=== PATIENT | male | born 1955 | race Caucasian/White ===

== ENCOUNTER 2020-01-24 19:10 | Emergency (ER) | payer OTHER ==
[~2020-01-24] VITALS: Ht 177.8 cm; Wt 84.5 kg
[2020-01-24 21:19] LABS: BASO % 1 % (0-3); EOS # 0.1 x10^3/uL (0.0-0.7); EOS % 1 % (0-3); HEMATOCRIT 43.6 % (39.0-53.0); HEMOGLOBIN 15.4 g/dL (13.0-17.5); LYMPH # 2.5 x10^3/uL (1.0-4.8); LYMPH % 32 % (24-48); MEAN CORPUSCULAR HEMOGLOBIN 30 pg (25-35); MEAN CORPUSCULAR HGB CONC 35 g/dL (31-37); MEAN CORPUSCULAR VOLUME 85 fL (79-100); MONO # 0.7 x10^3/uL (0.0-1.1); MONO % 9 % (0-9); NEUT # 4.5 x10^3/uL (1.8-7.7); NEUT % 57 % (31-73); PLATELET COUNT 213 x10^3/uL (140-400); RED BLOOD COUNT 5.15 x10^6/uL (4.30-5.70); RED CELL DISTRIBUTION WIDTH 13.5 % (11.5-14.5); WHITE BLOOD COUNT 7.8 x10^3/uL (4.0-11.0)
[2020-01-24 21:20] LABS: BILIRUBIN,URINE NEGATIVE (NEG); CLARITY,URINE CLEAR; COLOR,URINE YELLOW; NITRITE,URINE NEGATIVE (NEG); PH,URINE 5.5 (<5.0-8.0); PROTEIN,URINE NEGATIVE (NEG-TRACE); UROBILINOGEN,URINE 0.2 mg/dL (0.2 mg/dL)
[2020-01-24 21:28] LABS: BACTERIA,URINE 0 /HPF (0-FEW); RBC,URINE 0 /HPF (0-2); WBC,URINE 0 /HPF (0-4)
[2020-01-24 21:32] LABS: CALCIUM 8.9 mg/dL (8.5-10.1); GFR 75.5; POTASSIUM 4.1 mmol/L (3.5-5.1)
[2020-01-24 21:38] LABS: ALBUMIN/GLOBULIN RATIO 1.5 (1.0-1.7); MAGNESIUM 2.2 mg/dL (1.8-2.4); TOTAL BILIRUBIN 0.7 mg/dL (0.2-1.0); TOTAL PROTEIN 6.7 g/dL (6.4-8.2)
--- NOTE | 2020-01-24 21:42 | PHYS DOC ---
Past Medical History Past Medical History: GERD, Hypertension Past Surgical History: Cholecystectomy Smoking Status: Former Smoker Alcohol Use: Occasionally Drug Use: None General Adult EDM: Chief Complaint: ABDOMINAL PAIN HPI: HPI: Patient is a 64 year old male who presents with abdominal pain that started getting worse on Monday. The pain is diffuse and radiates to his back and is rated 10/10. Pt notes associated nausea. The pt admits loss of appetite and the pain gets worse with eating. Pt states that gas-x, Tylenol, and aleve did not help. Pt does admit a headache that is worse than normal. Pt also states that he is due for an esophageal dilation soon and takes omeprazole for GERD symptoms daily. Last bowel movement was today. Denies known sick contact. Denies known exposure to COVID-19. Reports recently tested negative for COVID-19. Review of Systems: Review of Systems: Constitutional: Denies fever or chills Eyes: Denies redness or eye pain HENT: Denies nasal congestion or sore throat Respiratory: Denies cough, endorses chronic shortness of breath Cardiovascular: Denies chest pain or palpitations GI: Denies vomiting, endorses abdominal pain and nausea : Denies dysuria or hematuria Musculoskeletal: Denies joint pain or back pain Integument: Denies rash or skin lesions Neurologic: Denies focal weakness or sensory changes, endorses headache Complete systems were reviewed and found to be within normal limits, except as documented in this note. Current Medications: Current Medications Medications (Trade) Dose Ordered Sig/[facility] Start Time Stop Time Status Last Admin Dose Admin Ondansetron HCl (Zofran) 4 mg 1X ONCE 01/24/20 22:00 01/24/20 22:01 Sodium Chloride 1,000 ml @ 1,000 mls/hr 1X ONCE 01/24/20 22:00 01/24/20 22:59 Allergies: Allergies: Allergies Coded Allergies Type Severity Reaction Last Updated Verified propoxyphene Allergy Severe 01/24/20 Yes doxycycline Allergy Intermediate 01/24/20 Yes Physical Exam: PE: Constitutional: Well developed, well nourished, no acute distress, non-toxic appearance HENT: Normocephalic, atraumatic Neck: Normal range of motion, no tenderness, supple Lungs & Thorax: No respiratory distress, equal chest rise and fall Abdomen: Distended, diffuse tenderness, BSx4, tympanic to percussion, negative mcburney's point tenderness, rebound tenderness in LLQ and RLQ Skin: Warm, dry, no erythema, no rash Back: No tenderness, no CVA tenderness Extremities: No tenderness, ROM intact, no edema Neurologic: Alert and oriented X 3, normal motor function, normal sensory function, no focal deficits noted Psychologic: Affect normal, judgment normal Current Patient Data: Labs: Laboratory Tests Test 01/24/20 19:30 01/24/20 20:55 Urine Collection Type Unknown Urine Color Yellow Urine Clarity Clear Urine pH 5.5 (<5.0-8.0) Urine Specific [place] <=1.005 (1.000-1.030) Urine Protein Negative mg/dL (NEG-TRACE) Urine Glucose (UA) Negative mg/dL (NEG) Urine Ketones (Stick) Negative mg/dL (NEG) Urine Blood Negative (NEG) Urine Nitrite Negative (NEG) Urine Bilirubin Negative (NEG) Urine Urobilinogen Dipstick 0.2 mg/dL (0.2 mg/dL) Urine Leukocyte Esterase Negative (NEG) Urine RBC 0 /HPF (0-2) Urine WBC 0 /HPF (0-4) Urine Squamous Epithelial Cells Occ /LPF Urine Bacteria 0 /HPF (0-FEW) White Blood Count 7.8 x10^3/uL (4.0-11.0) Red Blood Count 5.15 x10^6/uL (4.30-5.70) Hemoglobin 15.4 g/dL (13.0-17.5) Hematocrit 43.6 % (39.0-53.0) Mean Corpuscular Volume 85 fL (79-100) Mean Corpuscular Hemoglobin 30 pg (25-35) Mean Corpuscular Hemoglobin Concent 35 g/dL (31-37) Red Cell Distribution Width 13.5 % (11.5-14.5) Platelet Count 213 x10^3/uL (140-400) Neutrophils (%) (Auto) 57 % (31-73) Lymphocytes (%) (Auto) 32 % (24-48) Monocytes (%) (Auto) 9 % (0-9) Eosinophils (%) (Auto) 1 % (0-3) Basophils (%) (Auto) 1 % (0-3) Neutrophils # (Auto) 4.5 x10^3/uL (1.8-7.7) Lymphocytes # (Auto) 2.5 x10^3/uL (1.0-4.8) Monocytes # (Auto) 0.7 x10^3/uL (0.0-1.1) Eosinophils # (Auto) 0.1 x10^3/uL (0.0-0.7) Basophils # (Auto) 0.0 x10^3/uL (0.0-0.2) Laboratory Tests 01/24/20 20:55 EKG: EKG: [] Radiology/Procedures: Radiology/Procedures: PROCEDURE: CT ABD PELV W/ORAL&IV CONTRAST Exam: CT of abdomen and pelvis with contrast INDICATION: Abdominal pain TECHNIQUE: Sequential axial images through the abdomen and pelvis obtained following the administration of 75 mL of Omni 300 IV contrast. Sagittal and coronal reformatted images were reconstructed from the axial data and reviewed. Comparisons: None FINDINGS: Heart size is normal. No pericardial effusion. Visualized lung bases are clear. No pleural effusion. Liver, spleen, pancreas, and adrenals are unremarkable. Gallbladder surgically absent. No perinephric inflammation or hydronephrosis. No renal or ureteral calculi are identified. Bladder is distended and appears thin-walled. Prostate is not enlarged. Large and small bowel are unremarkable. Appendix is normal. No free intra-abdominal air or fluid. No obstruction. Abdominal aorta has a normal course and caliber. Abdominal vasculature is patent. No enlarged abdominal lymph nodes are identified. No suspicious osseous lesions or acute fractures. IMPRESSION: No acute process identified within the abdomen or pelvis. Exposure: One or more of the following in the visualized dose reduction techniques were utilized for this examination: 1. Automated exposure control 2. Adjustment of the MA and/or KV according to patient size 3. Use of iterative of reconstructive technique Electronically signed by: Risa Sagastume MD (01/24/2020 11:09 PM) [facility] Med Decision Making: Course & Med Decision Making Pertinent Labs and Imaging studies reviewed. (See chart for details) 64 yo male pt presents with abdominal pain that has been getting worse since Monday. The pain is diffuse and radiates to his back. Last bowel movement was today. Denies any diarrhea or constipation. Labs obtained and posted to chart. CT demonstrated no acute abdominal processes. Symptomatic treatment provided. Patient stable for discharge with outpatient follow-up with PCP. Discussed findings and plan with patient and family, who acknowledge understanding and agreement. Brennan Disclaimer: Brennan Disclaimer: This electronic medical record was generated, in whole or in part, using a voice recognition dictation system. Departure Departure Impression: Primary Impression: Abdominal pain Qualified Codes: R10.84 - Generalized abdominal pain Disposition: 01 DC HOME SELF CARE/HOMELESS Condition: STABLE Referrals: MACK FREIRE MD Patient Instructions: Abdominal Pain, Wkow-oq-Iscg Scripts Hydrocodone/Apap 5-325 (NORCO 5-325 TABLET) 1 Each Tablet 0.5-1 TAB PO Q6HRS PRN for PAIN, #10 TAB Prov: TONYA MENDEZ DO 01/24/20 Sennosides/Docusate Sodium (Colace 2-in-1 Tablet) 1 Each Tablet 1 TAB PO QHS, #30 TAB 0 Refills Prov: TONYA MENDEZ DO 01/24/20 Hyoscyamine Sulfate (LEVSIN-SL) 0.125 Mg Tab.subl 0.125 MG SL Q4-6HRS PRN for PAIN, #14 TAB Prov: TONYA MENDEZ DO 01/24/20 Ondansetron (ONDANSETRON ODT) 4 Mg Tab.rapdis 1 TAB PO PRN Q6-8HRS PRN for NAUSEA, #16 TAB Prov: TONYA MENDEZ DO 01/24/20 TONYA MENDEZ DO Jan 24, 2020 21:41
[2020-01-24] MEDS ORDERED: CONTRAST GIVEN. MC PRN (21:45)
[2020-01-24] MEDS ORDERED: ONDANSETRON PF 4 MG/2 ML VIAL. IVP ONE (22:00)
[2020-01-24] MEDS ORDERED: IV NORMAL SALINE 1000ML BAG 1,000 ML IV ONE (22:00)
[2020-01-24] MEDS ORDERED: fentaNYL PF VIAL 100 MCG/2 ML VIAL IV ONE (22:00)
[2020-01-24] MEDS ORDERED: IOHEXOL 240 MG/ML 50ML VIAL. PO ONE (22:00)
[2020-01-24] MEDS ORDERED: IOHEXOL 300 MG/ML 100ML VIAL. IV ONE (22:30)
[2020-01-24] MEDS ORDERED: KETOROLAC 15 MG/ML VIAL. IVP ONE (23:00)
--- NOTE | 2020-01-24 23:11 | RAD ---
Exam: CT of abdomen and pelvis with contrast INDICATION: Abdominal pain TECHNIQUE: Sequential axial images through the abdomen and pelvis obtained following the administration of 75 mL of Omni 300 IV contrast. Sagittal and coronal reformatted images were reconstructed from the axial data and reviewed. Comparisons: None FINDINGS: Heart size is normal. No pericardial effusion. Visualized lung bases are clear. No pleural effusion. Liver, spleen, pancreas, and adrenals are unremarkable. Gallbladder surgically absent. No perinephric inflammation or hydronephrosis. No renal or ureteral calculi are identified. Bladder is distended and appears thin-walled. Prostate is not enlarged. Large and small bowel are unremarkable. Appendix is normal. No free intra-abdominal air or fluid. No obstruction. Abdominal aorta has a normal course and caliber. Abdominal vasculature is patent. No enlarged abdominal lymph nodes are identified. No suspicious osseous lesions or acute fractures. IMPRESSION: No acute process identified within the abdomen or pelvis. Exposure: One or more of the following in the visualized dose reduction techniques were utilized for this examination: 1. Automated exposure control 2. Adjustment of the MA and/or KV according to patient size 3. Use of iterative of reconstructive technique Electronically signed by: Risa Sagastume MD (01/24/2020 11:09 PM) [facility]
[2020-01-24] MEDS ORDERED: HYOS0.1265 SL (23:54)
[2020-01-24] MEDS ORDERED: HYDR-3164 PO (23:54)
[2020-01-24] MEDS ORDERED: ONDA4TAB12 PO (23:54)
[2020-01-24] MEDS ORDERED: SENN-121 PO (23:54)
[2020-01-25 00:30] VITALS: BP 164/93
== END 2020-01-25 01:00 | disposition home or self-care (01) ==
LOC: ER 19:10
DX: R10.84 Generalized abdominal pain (principal); R51.9 Headache, unspecified; R11.0 Nausea; M54.9 Dorsalgia, unspecified; R63.0 Anorexia; K21.9 Gastro-esophageal reflux disease without esophagitis; I10 Essential (primary) hypertension; Z87.891 Personal history of nicotine dependence; Z90.49 Acquired absence of other specified parts of digestive tract; Z88.1 Allergy status to other antibiotic agents; Z88.8 Allergy status to other drugs, medicaments and biological substances
CPT/HCPCS: 36415; 74177; 80053; 81001; 83690; 83735; 85025; 96361; 96374; 96375; 99285; J1885; J2405; J3010; J7030; Q9966; Q9967

== ENCOUNTER → 2020-02-05 | Day surgery (SDC) | payer OTHER ==
[~2020-02-05] MED LIST: ATOR10TA60 PO; FLUT9.9S NS; HYDR-3164 PO; HYOS0.1265 SL; IV RINGERS,LACTATED 1000ML 1,000 ML IV SCH; LIDOCAINE 2% PF 5 ML VIAL. ONE; LOSA-73 PO; OMEP40CA45 PO; ONDA4TAB12 PO; PROPOFOL 10 MG/ML (20ML) VIAL. IV ONE; SENN-121 PO
[2020-02-05 08:27] VITALS: BP 118/65
--- NOTE | 2020-02-07 15:20 | PATHOLOGY ---
[facility] Accession Number: [id number] . 01 Material submitted: . rectum - RECTAL POLYP . 01 Clinical history: . CRCS, DYSPHAGIA, ABDOMINAL PAIN . 02 Diagnosis: Colorectal biopsies, rectal polyps: - Hyperplastic polyps. ([facility] 02/07/2020) [facility] 02/07/2020 0913 Local . 02 Comment: There are no adenomatous changes or evidence of malignancy. ([facility] 02/07/2020) . 02 Electronically signed: . Pepito Jay MD, Pathologist NPI- [id number] . 01 Gross description: . The specimen is received in formalin, labeled "[place], rectal polyp" and consists of 5 fragments of pink-hall tissue measuring between 0.2 x 0.2 cm and 0.3 x 0.2 cm which are entirely submitted in A1. ([facility]; 02/06/2020) [facility]/SYU 02/06/2020 1713 Local . 02 Pathologist provided ICD-10: K62.1 . 02 CPT . 862162 Specimen Comment: A courtesy copy of this report has been sent to [phone], [phone] Specimen Comment: [id number] Specimen Comment: Report sent to / DR STOKES Performed at: 01 [facility] [address], [place], [place] [id number] MD Hugh Whitehead MD Phone: [phone] Performed at: 02 [facility] [address], [place] [id number] MD Pepito Jay MD Phone: [phone]
== END | disposition home or self-care (01) ==
LOC: ENDOS 06:31
PROVIDERS: ATTEND Internal Medicine Gastroenterology
DX: Z12.11 Encounter for screening for malignant neoplasm of colon (principal); R13.10 Dysphagia, unspecified; R10.13 Epigastric pain; K64.0 First degree hemorrhoids; K62.1 Rectal polyp; K29.50 Unspecified chronic gastritis without bleeding; K63.89 Other specified diseases of intestine; I10 Essential (primary) hypertension; E78.00 Pure hypercholesterolemia, unspecified; J43.9 Emphysema, unspecified; K21.9 Gastro-esophageal reflux disease without esophagitis; M19.90 Unspecified osteoarthritis, unspecified site; I25.10 Atherosclerotic heart disease of native coronary artery without angina pectoris; N40.1 Benign prostatic hyperplasia with lower urinary tract symptoms; Z90.49 Acquired absence of other specified parts of digestive tract; Z80.0 Family history of malignant neoplasm of digestive organs; Z98.890 Other specified postprocedural states; Z88.1 Allergy status to other antibiotic agents; Z88.8 Allergy status to other drugs, medicaments and biological substances; Z72.89 Other problems related to lifestyle; Z79.899 Other long term (current) drug therapy
CPT/HCPCS: 43450; 45380; J2704

== ENCOUNTER → 2020-02-19 | Outpatient (CLI) | payer OTHER ==
[2020-02-05 08:27] VITALS: BP 118/65
[~2020-02-19] MED LIST changes: -IV RINGERS,LACTATED 1000ML 1,000 ML IV SCH; -LIDOCAINE 2% PF 5 ML VIAL. ONE; -PROPOFOL 10 MG/ML (20ML) VIAL. IV ONE
--- NOTE | 2020-02-19 15:05 | RAD ---
Gastric Emptying Study Indication: Abdominal pain, bloating. Procedure: Anterior and posterior projection static images are obtained over the stomach following or al administration of 2 mCi of 99 M technetium sulfur colloid in a solid meal. Time points include an immediate baseline, and 1, 2, 3, and 4 hours post ingestion. Findings: There is progressive emptying of the stomach on sequential images. Percentage retention at one hour is 50% (normal 34.8-91%). Two hours 20% (normal 2.7-60%). Three hours 14% (normal 0.5-28%). Four hours 9% (normal 0-10%). The calculated T1/2 of emptying is 82 minutes. 45-90 minutes is considered normal. IMPRESSION: Normal 4 hour protocol gastric emptying study. Electronically signed by: Darrian Martin MD (02/19/2020 3:03 PM) [id number]
== END ==
LOC: NM 09:21
PROVIDERS: ATTEND Internal Medicine Gastroenterology
DX: R10.84 Generalized abdominal pain (principal); R10.9 Unspecified abdominal pain
CPT/HCPCS: 78264; A9541

== ENCOUNTER → 2020-02-25 | Outpatient (CLI) | payer OTHER ==
[2020-02-05 08:27] VITALS: BP 118/65
[~2020-02-25] MED LIST changes: -OMEP40CA45 PO; +OMEP40CA7 PO
--- NOTE | 2020-02-25 08:26 | RAD ---
EXAM: Abdomen sonogram. HISTORY: Pain and distention. TECHNIQUE: Sonographic imaging of the abdomen was performed. COMPARISON: CT dated 01/24/2020. FINDINGS: The liver is enlarged. No focal hepatic lesion is seen. The gallbladder is surgically absen t. The common bile duct is normal in caliber. The kidneys are normal in size. No solid or cystic daniel l lesion is seen. The spleen is normal in size. The pancreas, aorta and inferior vena cava are obscur ed due to bowel gas. IMPRESSION: 1. Hepatomegaly and hepatic steatosis. 2. Obscured midline structures due to bowel gas. 3. No acute sonographic finding. Electronically signed by: Carol Ann Bell MD (02/25/2020 8:23 AM) [id number]
== END ==
LOC: US 06:37
PROVIDERS: ATTEND Internal Medicine Gastroenterology
DX: K76.0 Fatty (change of) liver, not elsewhere classified (principal); R14.0 Abdominal distension (gaseous)
CPT/HCPCS: 76700

== ENCOUNTER → 2020-03-12 | Outpatient (CLI) | payer OTHER ==
[2020-02-05 08:27] VITALS: BP 118/65
[~2020-03-12] MED LIST changes: +BARIUM SULFATE 60% 355 ML SUSP PO ONE; +OMEP40CA45 PO; -OMEP40CA7 PO
--- NOTE | 2020-03-12 17:17 | RAD ---
EXAM: SMALL BOWEL FOLLOW-THROUGH. HISTORY: Weight gain and abdominal distention. COMPARISON: CT abdomen and pelvis with oral and IV contrast of 01/24/2020. FINDINGS: A shirt bander image was obtained. Barium contrast material was administered orally and followed i n its course through the stomach, small bowel and proximal colon with fluoroscopy and plain radiograp hs. 1 fluoroscopic image was obtained. Fluoroscopy time 0.2 minutes. The shirt bander image demonstrates a nonobstructive bowel gas pattern. Normal radiographic appearance to th e terminal ileum. There are no distended small bowel loops. No strictures are seen. The small bowel fold pattern is unr emarkable. Transit time was normal at 1.5 hours (normal <2 hours.) IMPRESSION: 1. Unremarkable small bowel series. Electronically signed by: Deneen Harper MD (03/12/2020 5:15 PM) [id number]
== END ==
LOC: RAD 08:45
PROVIDERS: ATTEND Internal Medicine Gastroenterology
DX: R14.0 Abdominal distension (gaseous) (principal); R63.5 Abnormal weight gain
CPT/HCPCS: 74250

== ENCOUNTER → 2020-04-13 | Outpatient (CLI) | payer OTHER ==
[2020-02-05 08:27] VITALS: BP 118/65
[~2020-04-13] MED LIST changes: -BARIUM SULFATE 60% 355 ML SUSP PO ONE
--- NOTE | 2020-04-13 14:17 | RAD ---
MR#: [id number] Date of Study: 04/13/2020 Ordering Physician: GRANT LOYA, Referring Physician: BENJIE BLANTON Tech: RT Agata (R) (N) APPROVED REPORT Test Type: Exercise Stress Nurse/Tech: Hay Munroe RN Test Indications: dyspnea, chest pain Cardiac History: HTN, asthma, Cath 2019 Medications: See Electronic Medical Record Medical History: See Electronic Medical Record Resting ECG: SR Resting Heart Rate: 65 bpm Resting Blood Pressure: 135/91mmHg Pretest Chest Pain: None Nurse/Tech Notes Lungs CTA, S1S2 Consent: The procedure was explained to the patient in lay terms. Informed consent was witnessed. Oliver eout was entered into [employer]. History and Stress Test performed by RT Elen (R) (N) Stress Symptoms Dyspnea, tightness in chest that resolved POST EXERCISE Reason for Termination: Reached target heart rate Target HR: Yes Max HR: 144 bpm % of Maximum Predicted HR: 144 bpm Exercise duration: 7:00 min:sec, 3 Stage Exercise capacity: 10METs Max Blood Pressure: 173/80mmHg Blood Pressure response to exercise: Normal blood pressure response during stress. Heart Rate response to exercise: normal response Chest Pain: No. Arrhythmia: Yes. frequent PVC ST Change: No. INTERPRETATION Stress EKG Conclusion: Abnormal EKG with frequent PVC's at recovery. No acute ST/T changes. Imaging Protocol IMAGE PROTOCOL: Rest Tc-99m/stress Tc-99m 1 day Rest: Stress: Viability: Radiopharm.Tc99m CapxulnamIe50p Sestamibi Dose10.5mCi 10.7mCi Duration 13min. 13min. Img Date 04/13/2020 04/13/2020 Inj-Img Nmkg05rgm. 60min. Rest Admin Site:IV - Right HandAdministrator:RT Agata (Dorothea)(N) Stress Admin Site: IV - Right HandAdministrator: RT Lukasz Myrick)(N) STRESS DATA End Diast. Vol.104.0mlLVEDV index BSA51.0ml End Syst. Vol.34.0mlLVESV index BSA17.0ml Myocardial Ujsb000.0gEject. Bwsnioml15.0% Stress Scores Regional WT0.00Summed WT8.00 Regional WM0.00Summed WM2.00 LV Perfusion There is normal perfusion at stress. Resting images demonstrate subdiaphragmatic attenuation artifact . Wall Motion Normal wall motion. EF 65% LV Perf. Quant 17 Seg. SSS0.00 17 Seg. SRS5.00 17 Seg. SDS0.00 Stress Defect Extent (% LAD)0.00Rest Defect Extent (% LAD)0.00Rev. Defect Extent (% LAD)0.00 Stress Defect Extent (% LCX) 0.00Rest Defect Extent (% LCX)7.50Rev. Defect Extent (% LCX)0.00 Stress Defect Extent (% RCA)0.00Rest Defect Extent (% RCA)32.20Rev. Defect Extent (% RCA)0.00 Stress Defect Extent (% MADDIE)0.00Rest Defect Extent (% MADDIE)8.70Rev. Defect Extent (% MADDIE)0.00 Other Information Quality:Good Risk Assessment: Low Risk Conclusion 1. Abnormal stress ekg response with frequent PVCs at recovery. 2. Normal perfusion at stress. 3. Normal EF at > 70% 4. Low risk study. Signed by : Grant Loya, Electronically Approved : 04/13/2020 14:17:24
== END ==
LOC: NM 13:05
PROVIDERS: ATTEND Internal Medicine Cardiovascular Disease
DX: I10 Essential (primary) hypertension (principal); R07.9 Chest pain, unspecified
CPT/HCPCS: 78452; 93017; A9500

== ENCOUNTER → 2020-06-29 | Outpatient (CLI) | payer OTHER ==
[2020-02-05 08:27] VITALS: BP 118/65
--- NOTE | 2020-06-29 12:07 | RAD ---
XR CHEST 2V History: Shortness of breath. Comparison: None. Technique: PA and lateral chest radiographs. Findings: The lungs are adequately and symmectrically inflated. No airspace consolidation, pleural effusion or pneumothorax. The cardiomediastinal silhoutte and pulmonary vasculature are within normal limits. Rig ht upper quadrant cholecystectomy clips. Soft tissues and osseous structures are unremarkable. Impression: 1. No acute cardiopulmonary process. Electronically signed by: Derrick Alexander MD (06/29/2020 12:04 PM) [facility]
== END ==
LOC: RAD 10:34
PROVIDERS: ATTEND Internal Medicine Pulmonary Disease
DX: R06.02 Shortness of breath (principal)
CPT/HCPCS: 71046

== ENCOUNTER → 2020-07-06 | Outpatient (CLI) | payer OTHER ==
[2020-02-05 08:27] VITALS: BP 118/65
--- NOTE | 2020-07-08 08:47 | SLEEP ---
DATE OF STUDY: 07/06/2020 OBJECTIVE: The patient is a 64-year-old male with excessive somnolence. Height 70 inches, weight 197 pounds, BMI 28.3. [place] sleep score 15. INTERPRETATION: There are a total of 118 respiratory events for an apnea-hypopnea index of 7.3 events per hour of sleep. There was also indications of flow limitations outside of these apnea events. The minimum oxygen saturation is 83%. IMPRESSION: Abnormal home polysomnogram showing mild obstructive sleep apnea and hypopnea. RECOMMENDATIONS: The patient should start on auto titrating CPAP or could return to the lab for in-lab CPAP titration study. Thank you for letting us help with the patient's care. ED DR: Bhavana TID: [id number] CC: HEMA Moreno, MEME GARCIA MD
== END ==
LOC: RT 11:01
PROVIDERS: ATTEND Nurse Practitioner Family
DX: G47.33 Obstructive sleep apnea (adult) (pediatric) (principal)
CPT/HCPCS: G0399

== ENCOUNTER → 2020-07-07 | Outpatient (CLI) | payer OTHER ==
[2020-02-05 08:27] VITALS: BP 118/65
--- NOTE | 2020-07-07 10:31 | RAD ---
EXAM: Chest low dose lung cancer screening CT without intravenous contrast. HISTORY: Lung cancer screening. Cigarette smoking history. TECHNIQUE: Computed tomographic images of the chest were obtained without contrast. Multiplanar refor matting was performed. *One or more of the following individualized dose reduction techniques were utilized for this examina tion: 1. Automated exposure control. 2. Adjustment of the mA and/or kV according to patient size. 3. Use of iterative reconstruction technique. COMPARISON: None. FINDINGS: There are several tiny groundglass and solid bilateral pulmonary nodules. For reference pur poses, the largest nodules include a 2 mm nodule within the lateral right upper lobe (series 2, image 60), a 2 mm nodule within the lateral right upper lobe (series 2, image 75), a 2 mm nodule within th e lateral right upper lobe (series 2, image 119), a 3 mm nodule within the mid right upper lobe (seri es 2, image 136), a 3 mm nodule within the inferior right upper lobe (series 2, image 164), a 2 mm no dule within the right middle lobe (series 2, image 181), a 2 mm nodule within the superior segment of the right lower lobe (series 2, image 86), and a 2 mm nodule within the anterior left upper lobe (se jeni 2, image 79). There is a tiny filling defect within the left upper lobe bronchus likely due to uncleared secretions . There is minimal emphysema. There is no pneumothorax. There is no pleural effusion. There is no inf iltrate. There is biapical pleural parenchymal scarring. There is a calcified granuloma within the le ft lung base. The heart is normal in size. There is calcified atherosclerotic plaque involving the coronary arterie s. There is no lymphadenopathy. There is no acute finding involving the upper abdomen. There is no ac jessica or suspicious osseous finding. IMPRESSION: 1. Multiple tiny bilateral pulmonary nodules measuring up to 3 mm. Lung RADS category 2:12 month foll ow-up is recommended. 2. Minimal emphysema. 3. Calcified atherosclerotic plaque involving the coronary arteries. Electronically signed by: Carol Ann Bell MD (07/07/2020 10:28 AM) [id number]
== END ==
LOC: CT 09:26
PROVIDERS: ATTEND Internal Medicine Pulmonary Disease
DX: Z12.2 Encounter for screening for malignant neoplasm of respiratory organs (principal); R91.8 Other nonspecific abnormal finding of lung field; J43.9 Emphysema, unspecified; I25.10 Atherosclerotic heart disease of native coronary artery without angina pectoris; F17.210 Nicotine dependence, cigarettes, uncomplicated
CPT/HCPCS: 71271

== ENCOUNTER → 2020-08-05 | Outpatient (CLI) | payer OTHER ==
[2020-02-05 08:27] VITALS: BP 118/65
[~2020-08-05] MED LIST changes: -OMEP40CA45 PO; +OMEP40CA7 PO; +OXYMETAZOLINE 0.05% NASAL SPRAY 30ML BOTTLE. NS ONE; +ZOLPIDEM 5 MG TABLET. PO ONE
--- NOTE | 2020-08-06 13:55 | SLEEP ---
DATE OF STUDY: 08/05/2020 POLYSOMNOGRAM REPORT OBJECTIVE: The patient is a 65-year-old male with insomnia, snoring, fatigue, observed apnea, excessive somnolence, awakening short of breath. Previous study on 07/06/2020 showed a mild obstructive sleep apnea and hypopnea for an apnea-hypopnea index of 7.3 events per hour of sleep. That study was a home study. Height 5 feet 2 inches, weight 194 pounds, body mass index 28, [place] sleep score 13. INTERPRETATION: Sleep architecture is characterized by a sleep efficiency of 72% across 6.6 hours of recording time. Stage volumes are appropriate for age. Sleep onset latency is 34 minutes. This is a CPAP titration study. There are a total of 19 events for an apnea-hypopnea index of 4 events per hour of sleep. The minimum oxygen saturation is 88%. The patient is started on 5 cm of CPAP and there are only 4 events per hour on that setting. A setting of 7 was also tried. No significant cardiac arrhythmias are seen. Periodic limb movements of sleep occur at the rate of 70 events per hour of sleep. IMPRESSION: Abnormal polysomnogram showing a successful continuous positive airway pressure titration using 7 cm, Respironics DreamWear Wisp nasal mask, medium size. A small number of periodic limb movements of sleep are observed. RECOMMENDATIONS: 1. The patient should be established on this setting. 2. He should avoid sedatives and alcohol and the supine position. Thank you for letting us help with the patient's care. SHARA DR: Bhavana TID: [id number] CC: CIERA Moreno, MD STUART SOTO
== END ==
LOC: RT 19:09
PROVIDERS: ATTEND Nurse Practitioner Family
DX: G47.61 Periodic limb movement disorder (principal); G47.00 Insomnia, unspecified; G47.30 Sleep apnea, unspecified
CPT/HCPCS: 95811

== ENCOUNTER → 2021-02-09 | Outpatient (CLI) | payer OTHER ==
[2020-02-05 08:27] VITALS: BP 118/65
[~2021-02-09] MED LIST changes: +ALBUTEROL SULFATE 2.5 MG/3 ML NEBU. NEB ONE; -OXYMETAZOLINE 0.05% NASAL SPRAY 30ML BOTTLE. NS ONE; -ZOLPIDEM 5 MG TABLET. PO ONE
== END ==
LOC: PF 11:13
PROVIDERS: ATTEND Internal Medicine Pulmonary Disease
DX: J44.9 Chronic obstructive pulmonary disease, unspecified (principal)
CPT/HCPCS: 94060; 94640; 94729; J7613